=== PATIENT | male | born 1995 | race Caucasian/White ===

== ENCOUNTER 2020-08-31 06:50 | Outpatient (NON) | payer OTHER, SELFPAY ==
[2020-08-31 18:45] LABS: SARS-CoV-2 RNA PCR Negative
== END 2020-08-31 06:51 ==
PROVIDERS: PCP Nurse Practitioner Adult Health; Visit Provider Nurse Practitioner Adult Health
DX: R09.81 Nasal congestion (principal); Z20.828 Contact with and (suspected) exposure to other viral communicable diseases
CPT/HCPCS: 87635; C9803; U0003

== ENCOUNTER 2023-08-23 09:21 | Outpatient (CLI) | payer OTHER, SELFPAY ==
[2023-08-23 19:54] LABS: Alanine Aminotransferase 19 U/L (6-50); Albumin Level 4.3 g/dL (3.5-5.1); Alkaline Phosphatase 53 U/L (38-126); Anion Gap 6 mmol/L (8-16); Aspartate Amino Transferase 60 U/L (17-59); Bilirubin,Total 0.5 mg/dL (0.2-1.3); Blood Urea Nitrogen 13 mg/dL (9-20); Calcium 9.4 mg/dL (8.4-10.2); Carbon Dioxide 27 mmol/L (22-30); Chloride 106 mmol/L (98-107); Cholesterol 124 mg/dL (0-200); Estimated Glomerular Filt Rate > 60; Glucose 94 mg/dL (65-110); HDL Direct 40 mg/dL; Potassium 4.4 mmol/L (3.4-5.0); Sodium 139 mmol/L (137-145); Triglycerides 101 mg/dL (<150)
[2023-08-23 20:02] LABS: Hematocrit 45.1 % (42.0-52.0); Hemoglobin 15.2 g/dL (14.0-18.0); Mean Corpuscular HGB Conc 33.7 g/dl (32-36); Mean Corpuscular Hemoglobin 30.1 pg (26-34); Mean Corpuscular Volume 89.3 fl (80-100); Mean Platelet Volume 9.7 fl (7.4-10.4); Platelet Count Result 349 k/mm3 (150-375); Red Blood Count 5.05 M/mm3 (4.6-6.20); Red Cell Distribution Width 12.5 % (11.5-14.5); White Blood Count 7.5 K/mm3 (4.5-10.0)
[2023-08-23 20:05] LABS: LDL Cholesterol Direct 57 mg/dL
[2023-08-31 09:22] LABS: Testosterone Free 87.5 pg/mL (35.0-155.0); Testosterone Total 506 ng/dL (250-1100)
== END 2023-08-23 09:22 | disposition home or self-care (01) ==
LOC: ANHBWCLAB 09:23
PROVIDERS: PCP Nurse Practitioner Adult Health; Visit Provider Nurse Practitioner Adult Health
DX: Z13.9 Encounter for screening, unspecified (principal); F32.A Depression, unspecified; L05.91 Pilonidal cyst without abscess
CPT/HCPCS: 36415; 80053; 80061; 84402; 84403; 84443; 85027

== ENCOUNTER 2023-09-24 02:49 | Day surgery (SDC) | payer OTHER, SELFPAY ==
[2023-09-19 13:31] VITALS: BMI 27.6
--- NOTE | 2023-09-19 13:43 | PC.NURSE ---
Report to the Outpatient Waiting Room, entrance under the green pavilion located off [facility], at time _06:00AM on date _09/24/23 . Planned Procedure Time: _07:30AM__. Time changes happen often and if your time is changed the preop area will call you the afternoon before. - You and your visitor will be asked to self-screen and do not enter if you have any COVID symptoms. - A mask is optional within the hospital at this time. Patients may have clear liquids (water, carbonated beverages, clear teas, apple juice) until 3 hours prior to surgery with a maximum of 20 ounces. - No food from midnight until time of surgery Take the following medications with a SIP of water the morning of surgery: ___LEXAPRO DO NOT STOP ANY OF YOUR OTHER PRESCRIPTION MEDICATIONS PRIOR TO SURGERY ?EXCEPT THE FOLLOWING Medications to discontinue per physician NONE Date to take last dose____NA Please no make-up, nail urdu, hairspray, perfume, deodorant, or body powder the day of surgery. No jewelry (including any body piercings) or valuables the day of surgery, leave them at home. Please take a shower or bath the night before, or the morning of, surgery with an antibacterial soap. Wear comfortable, loose fitting clothing. - Jewelry must be removed prior to entering the operating room. Rings and piercings that are not removed may be cut off. - The hospital will not accept responsibility for valuables. - Please leave all valuables, including medications, at home the day of surgery. If you are going home after surgery, a licensed special client bus driver must drive you home. - NO public transportation without another adult if you receive anesthesia. - We recommend that an adult stay with you for 24 hours following discharge. - We also recommend that you do not drive, make important decision, drink alcoholic beverages, or take any drugs that were not prescribed by your health care provider for at least 24 hours after your discharge time. Follow any additional instructions given to you from your surgeon. If you or anyone in your household have experienced Covid symptoms in the past week, please notify your surgeon or the nurse liaison at the phone number below for possible testing. Telephone instructions given to __NICK and asked if any additional questions and then verbalized understanding. Patient advised to call surgeon office or pre surgery nurse liaison [phone] if any additional questions.
[2023-09-24] VITALS (8 sets, daily range): BP systolic 104–140; BP diastolic 59–92; PULSE 61–86; RESP 12–18; TEMP 36.3–36.9; O2SAT 98–100
[2023-09-24] MEDS: LACTATED RINGERS 1,000 ML 30 ML IV CONT (06:15)
--- NOTE | 2023-09-24 07:04 | WPDANESEPPF ---
Anes - Initial Pre Proc Eval Procedure: Operation Date: 09/24/23 07:30 Proposed Procedures p Excisional Biopsy of Pilonidal Cyst - Carisa Pitts MD Date/Time: 09/24/23 07:04 Surgeon: Carisa Pitts MD Pre Op Diagnosis: infected pilonidal cyst Patient Data Age: 28 Gender: M Height: 1.8 m Weight: 90 kg Allergies Allergy/AdvReac Type Severity Reaction Status Date / Time No Known Allergies Allergy Verified 09/12/23 10:33 Home Medications Medication Instructions Recorded Confirmed Type amoxicillin 875 mg-potassium 1 tablet PO BID 08/23/23 09/19/23 History clavulanate 125 mg tablet escitalopram oxalate 10 mg tablet 10 mg PO DAILY #30 tabs 08/23/23 09/19/23 Rx (Lexapro) Patient hx anesthesia problems: none Family hx anesthesia problems: none Results Review: All pre-operative results and documents have been reviewed as part of the pre-operative evaluation. COUNTS INCLUDE 234 BEDS AT THE [facility] Past Medical History Medical History Anxiety GERD (gastroesophageal reflux disease) IBS (irritable bowel syndrome) Family History Family History Sibling Depression Grandparent No problems noted. Grandparent Heart disease Cancer Social History Social History Years smoked: 2 Smoking status: Former smoker Tobacco type: e-cigarettes/vaping Smoking end date: 08/03/23 Alcohol intake: current Alcohol use details: Beer 4-5 maybe a month Substance use: current Substance use type: marijuana Last use: 09/18/23 Lack of Transportation: No Current Housing: I Have Housing Concerned About Future Housing: No Difficulty Paying Gas/Electric Bills: No Difficulty Paying for Meds: No Currently Unemployed: No Education: High School Diploma/GED Difficulty w/ Childcare or Family Care: No Living arrangements: alone Occupation/Education: occupation 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 Informed Consent: The patient's anesthetic plan and its attendant risks and benefits were discussed with the patient/family/POA. Questions were solicited and answers provided to the satisfaction of the patient/family/POA.
--- NOTE | 2023-09-24 07:23 | WPDHPUPDATE1 ---
History and Physical Update Update Date/Time: 09/24/23 07:23 History and Physical has been reviewed, including an updated exam of the patient. There are NO changes in the patient's condition. Risks, benefits, and alternatives have been discussed and questions answered. Patient agrees to proceed with procedure.
[2023-09-24] MEDS: ceFAZolin 2 GM/D5W 50 ML 2 GM/50 ML BAG IVPB (07:30)
[2023-09-24] MEDS: BUPIVACAINE/EPINEPHRINE 0.5% 30 ML VIAL INFILTRATE (07:56)
--- NOTE | 2023-09-24 08:24 | W.PM.PROC2 ---
Procedure Note - Detailed Date of Procedure 09/24/23 Pre-op Diagnosis infected pilonidal cyst Post-op Diagnosis Same Procedure Performed Complicated excision and drainage of infected pilonidal cyst measuring 4 x 2 cm Surgeon Carisa Pitts MD Anesthesia General and Local Indications 28-year-old male presenting with chronically infected pilonidal cyst Findings chronically infected pilonidal cyst cavity measuring 4 x 2 cm with active infection and liquified necrosis in the subcutaneous space, tracking inferiorly approximately 10 cm to multiple draining sinus tracts Description of Procedure The patient was taken to the operating room and placed in the prone position. After adequate induction of general anesthesia, the patient was prepped and draped in the normal sterile fashion. A time-out was then done to verify the patient's identity, as well as the procedure being performed. I then proceeded to localize the area and around the chronically infected abscess cavity. Of note, inferior to this area there was a row of pilonidal sinus tracts. This area was approximately 5 cm away from the actively infected pilonidal cyst. Then made an elliptical incision encompassing the overlying dermis of this chronically infected pilonidal cyst. Once through the dermis, there was noted to be an actively infected cyst cavity with purulent drainage and liquified necrosis in the subcutaneous tissue. This was carried down to the level of the presacral fascia. This did not involve the underlying fascia or muscle. I was able to note a tract inferiorly that tunneled at least 10 cm to the area of the other sinus tracts. Given the extensive space and active infection, the decision was made to just drain this large cavity and pack the wound open. This was done by irrigating the entire cavity tracked and making sure it was completely drained. Once achieved, I packed the entire tract with half-inch packing. The opening was noted to be 4 x 2 cm. Sterile dressing was then placed. The patient tolerated the procedure well and was extubated postoperatively. He will be transferred to the recovery in stable condition. Estimated Blood Loss 5 Drains No Packing Yes Pathology Yes Complications No immediate complications Condition Stable Disposition PACU [facility] Billing Surgery - Charge Forward: Surgery Billing
== END 2023-09-24 09:50 | disposition home or self-care (01) ==
PROVIDERS: PCP Nurse Practitioner Adult Health; Visit Provider Surgery
PROC: (CPT 11772; principal; 2023-09-24 07:30)
DX: L05.01 Pilonidal cyst with abscess (principal); F41.9 Anxiety disorder, unspecified; K21.9 Gastro-esophageal reflux disease without esophagitis; K58.9 Irritable bowel syndrome, unspecified; F12.90 Cannabis use, unspecified, uncomplicated; F17.290 Nicotine dependence, other tobacco product, uncomplicated; Z82.49 Family history of ischemic heart disease and other diseases of the circulatory system; Z80.9 Family history of malignant neoplasm, unspecified
CPT/HCPCS: 11772; 88305; J0330; J0690; J1100; J2250; J2405; J2704; J3010; J7120

== ENCOUNTER 2024-03-12 01:57 | Day surgery (SDC) | payer OTHER, SELFPAY ==
[2024-03-10 14:54] VITALS: BMI 25.4
--- NOTE | 2024-03-10 15:00 | PC.NURSE ---
Report to the Outpatient Waiting Room, entrance under the green pavilion located off [facility], at time _1100_ on date 03/12/24_. Planned Procedure Time: _1300__. Time changes happen often and if your time is changed the preop area will call you the afternoon before. - You and your visitor will be asked to self-screen and do not enter if you have any COVID symptoms. - A mask is optional within the hospital at this time. Patients may have clear liquids (water, carbonated beverages, clear teas, apple juice) until 3 hours prior to surgery with a maximum of 20 ounces. - No food from midnight until time of surgery - Infants may have breast milk until 4 hours before surgery, infant formula 6 hours prior to surgery. - Children will be allowed to drink immediately following surgery. If applicable, please bring a bottle or sippy cup to assist with drinking. Juice, water, soda, and popsicles are readily available. For infants on formula, please bring formula the day of surgery. Pacifiers are allowed. Take the following medications with a SIP of water the morning of surgery: LEXPRO DO NOT STOP ANY OF YOUR OTHER PRESCRIPTION MEDICATIONS PRIOR TO SURGERY ?EXCEPT THE FOLLOWING Medications to discontinue per physician NONE Date to take last dose Please no make-up, nail bahraini, hairspray, perfume, deodorant, or body powder the day of surgery. No jewelry (including any body piercings) or valuables the day of surgery, leave them at home. Please take a shower or bath the night before, or the morning of, surgery with HIBICLENS antibacterial soap. Wear comfortable, loose fitting clothing. Children are encouraged to wear pajamas. - Jewelry must be removed prior to entering the operating room. Rings and piercings that are not removed may be cut off. - The hospital will not accept responsibility for valuables. - Please leave all valuables, including medications, at home the day of surgery. If you are going home after surgery, a licensed clark driver must drive you home. - NO public transportation without another adult if you receive anesthesia. - We recommend that an adult stay with you for 24 hours following discharge. - We also recommend that you do not drive, make important decision, drink alcoholic beverages, or take any drugs that were not prescribed by your health care provider for at least 24 hours after your discharge time. For Pediatric surgeries, we recommend two adults accompany the child home. Follow any additional instructions given to you from your surgeon. If you or anyone in your household have experienced Covid symptoms in the past week, please notify your surgeon or the nurse liaison at the phone number below for possible testing. Telephone instructions given to PATIENT _and asked if any additional questions and then verbalized understanding. Patient advised to call surgeon office or pre surgery nurse liaison [phone] if any additional questions.
[2024-03-12] VITALS (7 sets, daily range): BP systolic 95–127; BP diastolic 57–83; PULSE 54–74; RESP 10–20; TEMP 36.3–36.7; O2SAT 99–100
--- NOTE | 2024-03-12 10:57 | WPDHPUPDATE1 ---
History and Physical Update Update Date/Time: 03/12/24 10:57 History and Physical has been reviewed, including an updated exam of the patient. There are NO changes in the patient's condition. Risks, benefits, and alternatives have been discussed and questions answered. Patient agrees to proceed with procedure.
[2024-03-12] MEDS: LACTATED RINGERS 1,000 ML 30 ML IV CONT ×2 (11:45→13:34)
--- NOTE | 2024-03-12 11:54 | WPDANESEPPF ---
Anes - Initial Pre Proc Eval Procedure: Operation Date: 03/12/24 13:00 Proposed Procedures p Excision Biopsy of Chronic Abscess Cavity of Upper Gluteal Cleft - Carisa Pitts MD Date/Time: 03/12/24 11:54 Surgeon: Carisa Pitts MD Pre Op Diagnosis: chronic abscess Patient Data Age: 28 Gender: M Height: 1.83 m Weight: 85 kg Allergies Allergy/AdvReac Type Severity Reaction Status Date / Time No Known Allergies Allergy Verified 03/12/24 11:43 Home Medications Medication Instructions Recorded Confirmed Type escitalopram oxalate 20 mg tablet 20 mg PO DAILY #30 tabs 10/15/23 03/12/24 Rx (Lexapro) Patient hx anesthesia problems: none Family hx anesthesia problems: none Results Review: All pre-operative results and documents have been reviewed as part of the pre-operative evaluation. [facility] Past Medical History Medical History Anxiety GERD (gastroesophageal reflux disease) IBS (irritable bowel syndrome) Surgical History Surgical History History of excision of pilonidal cyst Complicated excision and drainage of infected pilonidal cyst measuring 4 x 2 cm 09/24/23 Dr. Pitts Family History Family History Sibling Depression Grandparent No problems noted. Grandparent Heart disease Cancer Social History Social History (Updated 03/12/24 @ 11:54 by Alex Parker MD) Years smoked: 2 Smoking status: Current every day smoker Tobacco type: e-cigarettes/vaping Smoking end date: 08/03/23 Alcohol intake: current Drinks per week: 1 Alcohol use details: Beer 4-5 maybe a month Substance use: current Substance use type: marijuana Other substance usage details: DAILY Last use: 09/18/23 Lack of Transportation: No Current Housing: I Have Housing Concerned About Future Housing: No Difficulty Paying Gas/Electric Bills: No Difficulty Paying for Meds: No Currently Unemployed: No Education: High School Diploma/GED Difficulty w/ Childcare or Family Care: No Living arrangements: with roommate(s) Occupation/Education: occupation 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 Informed Consent: The patient's anesthetic plan and its attendant risks and benefits were discussed with the patient/family/POA. Questions were solicited and answers provided to the satisfaction of the patient/family/POA.
[2024-03-12] MEDS: ceFAZolin 2 GM/D5W 50 ML 2 GM/50 ML BAG IVPB (12:55)
[2024-03-12] MEDS: BUPIVACAINE/EPINEPHRINE 0.5% 10 ML VIAL INFILTRATE (13:14)
--- NOTE | 2024-03-12 13:44 | W.PM.PROC2 ---
Procedure Note - Detailed Date of Procedure 03/12/24 Pre-op Diagnosis Recurrent pilonidal abscess Post-op Diagnosis Same Procedure Performed excision recurrent pilonidal abscess Surgeon Carisa Pitts MD Anesthesia General and Local Indications 28-year-old male presenting with recurrent pilonidal abscess. Patient started on antibiotics but noted with chronic tract and continued drainage Findings recurrent chronic pilonidal abscess Description of Procedure The patient was taken to the operating room and placed in the prone position. After adequate induction of general anesthesia, the patient was prepped and draped in the normal sterile fashion. A time-out was then done to verify the patient's identity, as well as the procedure being performed. I began by localizing the area in and around this chronic, recurrent pilonidal abscess cavity. I then made an elliptical incision to include the overlying dermis and opening of this pilonidal abscess. This was taken down through the dermis into the subcutaneous tissue. I was able to identify a tract leading to a abscess cavity. Using the Bovie cautery was able to excise the entirety the tract and cavity. There was noted to be some ingrown hair in the cavity. Once the area was excised was sent to pathology for further review. This was taken down posteriorly to the of fascia, but did not involve or underlying muscle. I then copiously irrigated the cavity and no other pathology was seen. Hemostasis was gained with the Bovie cautery. Given that there was no further active infection, the decision was made to close the incision. The subcutaneous tissue was closed 2-0 Vicryl suture. The dermis was closed 3-0 nylon suture in a mattress fashion. The patient tolerated the procedure well and was extubated postoperatively. He will be transferred to the recovery room stable condition. Estimated Blood Loss 10 Drains No Packing No Pathology Yes Complications No immediate complications Condition Stable Disposition PACU [facility] Billing Surgery - Charge Forward: Surgery Billing
[2024-03-12] MEDS: oxyCODONE HCL (*CRX) 5 MG TAB IR PO (14:24)
== END 2024-03-12 14:55 | disposition home or self-care (01) ==
PROVIDERS: PCP Nurse Practitioner Adult Health; Visit Provider Surgery
PROC: (CPT 11772; principal; 2024-03-12 13:00)
DX: L05.01 Pilonidal cyst with abscess (principal); F41.9 Anxiety disorder, unspecified; F17.290 Nicotine dependence, other tobacco product, uncomplicated; F12.90 Cannabis use, unspecified, uncomplicated
CPT/HCPCS: 11772; 88305; A9270; J0330; J0690; J1100; J2250; J2405; J2704; J3010; J7120

== ENCOUNTER 2025-03-03 02:42 | Day surgery (SDC) | payer OTHER, SELFPAY ==
[2025-02-27 10:41] VITALS: BMI 25.8
--- NOTE | 2025-02-27 10:48 | PC.NURSE ---
Report to the Outpatient Waiting Room, entrance under the green pavilion located off [facility], at time _0830_ on date _[id number]_. Planned Procedure Time: _1030_.? Time changes happen often and if your time is changed the preop area will call you the afternoon before. - You and your visitor will be asked to self-screen and do not enter if you have any COVID symptoms. Please call surgeon if you need to reschedule. - A mask is optional within the hospital at this time. Patients may have clear liquids (water, carbonated beverages, clear teas, apple juice) until 3 hours prior to surgery with a maximum of 20 ounces. - No food from midnight until time of surgery and no smoking, or chewing tobacco (or any form of nicotine). No chewing gum, candy or mints. Take only the following medications with a SIP of water on the morning of surgery: ___Augmentin if still taking.___ DO NOT STOP ANY OF YOUR OTHER PRESCRIPTION MEDICATIONS PRIOR TO SURGERY EXCEPT THE FOLLOWING Hold all vitamins and supplements for 3 days per anesthesiologist. Medications to discontinue per physician Date to take last dose____ Please no make-up, nail montenegrin, hairspray, perfume, deodorant, or body powder the day of surgery.? No jewelry (including any body piercings) or valuables the day of surgery, leave them at home.? Please take a shower or bath the night before, or the morning of, surgery with an antibacterial soap.? Wear comfortable, loose fitting clothing.? - Jewelry must be removed prior to entering the operating room.? Rings and piercings that are not removed may be cut off. - The hospital will not accept responsibility for valuables.? - Please leave all valuables, including medications, at home the day of surgery. If you are going home after surgery, a licensed parcel post truck driver must drive you home.? - NO public transportation without another adult if you receive anesthesia. - We recommend that an adult stay with you for 24 hours following discharge. - We also recommend that you do not drive, make important decision, drink alcoholic beverages, or take any drugs that were not prescribed by your health care provider for at least 24 hours after your discharge time. Follow any additional instructions given to you from your surgeon. Telephone instructions given to __Nick__and asked if any additional questions and then verbalized understanding. Patient advised to call surgeon office or pre surgery nurse liaison [phone] if any additional questions.
[2025-03-03] VITALS (9 sets, daily range): BP systolic 106–134; BP diastolic 59–84; PULSE 61–83; RESP 11–18; TEMP 36.1; O2SAT 98–100; BMI 25.1
--- OUTSIDE RECORDS SUMMARY | 2025-03-03 02:47 | XMS_ITS | Clinical Summary ---
Author Organization [facility] Address [address] [place] [address] Care Team Providers Care In Home Sales Consultant Name Role Phone Nehal Benoit MD Primary Care Provider + Source Comments [facility],non-owned Affiliates and Associated Physician Practices is amultiple site organization consisting of ambulatory clinics and hospital sitesin [place], [place], [place] and [place]. This disclosure is being madepursuant to the Care Everywhere program and may not contain all information available regarding this patient. 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 Gender Identity Not on file Sexual Orientation Not on file Plan of Treatment Health Maintenance Due Date Last Done Comments HIV SCREENING 2010 HEPATITIS C SCREENING 07/14/2013 DTAP/TDAP/TD VACCINES (1 - Tdap) 2014 HEPATITIS B VACCINE (1 of 3 - 19+ 3-dose series) 2014 COVID-19 VACCINE ( - 2023-2 5 season) 2024 DEPRESSION SCREENING 09/03/2024 INFLUENZA VACCINE (Season Ended) 2025 ZOSTER VACCINE (1 of 2) 2045 HIB VACCINE Aged Out No longer eligi ble based on patient's age to complete this topic HPV VACCINE Aged Out No longer eligi ble based on patient's age to complete this topic MENINGOCOCCAL (Group B) VACC INE SHARED DECISION-MAKING Aged Out No longer eligibl e based on patient's age to complete this topic MENINGOCOCCAL GROUPS A/C/Y/W VACCINE Aged Out No longer eligible b ased on patient's age to complete this topic PNEUMOCOCCAL VACCINE Aged Out No long er eligible based on patient's age to complete this topic Insurance [facility] Address: [address] [address] COMMERCIAL GENERIC SELF PAY NO INSURANCE Member Subscriber Plan / Payer (Ef fective for All Dates) Name:Adantrenton Marcia Sofia Member ID:Not on file Relation to Subscriber:Not on file Name:MARCIA ACKERMAN Subscriber ID:Not on file Address: [address] [place] [id number] Payer ID:Not on file Group ID:Not on file Type:Self Pay Address: [facility] * Guarantor: MARCIA ACKERMAN Account Type Relation to Patient Date of Phone Billing Address Personal/Family [address] [place] [address] [employer] SELF PAY NO INSURANCE Member Subscriber Plan / Payer (Ef fective for All Dates) Name:Marcia Ackerman Member ID:Not on file Relation to Subscriber:Not on file Name:MARCIA ACKERMAN Subscriber ID:Not on file Address: [address] [place], [place] [address] [id number] Payer ID:Not on file Group ID:Not on file Type:Self Pay Address: [place], [place] * Guarantor: MARCIA ACKERMAN Account Type Relation to Patient Date of Phone Billing Address Personal/Family [address] [place], [place] [address]R[place] [phone] [facility] SELF PAY NO INSURANCE Member Subscriber Plan / Payer (Ef fective for All Dates) Name:Marcia Ackerman Member ID:Not on file Relation to Subscriber:Not on file Name:MARCIA ACKERMAN Subscriber ID:Not on file Address: [address] [place] [id number] Payer ID:Not on file Group ID:Not on file Type:Self Pay Address: [place], [place] * Guarantor: MKEAMARCIA Account Type Relation to Patient Date of Phone Billing Address Personal/[place] [address] [facility] SELF PAY NO INSURANCE Member Subscriber Plan / Payer (Ef fective for All Dates) Name:Marcia Ackerman Member ID:Not on file Relation to Subscriber:Not on file Name:MARCIA ACKERMAN Subscriber ID:Not on file Address: [place] [address] Payer ID:Not on file Group ID:Not on file Type:Self Pay Address: [place], [place] Care Teams In Home Sales Consultant Relationship Specialty Start Date End Date Nehal Benoit MD [address] [facility] [address] [place] [address] PCP - General Pediatrics 06/10/13
--- NOTE | 2025-03-03 08:09 | WPDHPUPDATE1 ---
History and Physical Update Update Date/Time: 03/03/25 08:09 History and Physical has been reviewed, including an updated exam of the patient. There are NO changes in the patient's condition. Risks, benefits, and alternatives have been discussed and questions answered. Patient agrees to proceed with procedure.
--- NOTE | 2025-03-03 09:20 | P.PNAN_ITS ---
Anes - Initial Pre Proc Eval Procedure: Operation Date: 03/03/25 10:30 Proposed Procedures p Excision of Recurrent Pilonidal Abscess - Carisa Pitts MD Date/Time: 03/03/25 09:20 Surgeon: Carisa Pitts MD Pre Op Diagnosis: Recurrent Pilonidal Abscess Patient Data Age: 29 Gender: M Height: 1.83 m Weight: 86.4 kg Allergies Allergy/AdvReac Type Severity Reaction Status Date / Time No Known Allergies Allergy Verified 02/27/25 10:40 Home Medications ?Medication ?Instructions ?Recorded ?Confirmed ?Type escitalopram oxalate 20 mg tablet See Rx Instructions .Route 11/20/24 02/27/25 Rx .COMPLEX #30 tabs amoxicillin 875 mg-potassium 1 tablet PO BID 10 days #20 tabs 02/24/25 02/27/25 Rx clavulanate 125 mg tablet Patient hx anesthesia problems: none Family hx anesthesia problems: none Results Review: All pre-operative results and documents have been reviewed as part of the pre- operative evaluation. [facility] Past Medical History Medical History IBS (irritable bowel syndrome) GERD (gastroesophageal reflux disease) Anxiety Surgical History Surgical History History of excision of pilonidal cyst Complicated excision and drainage of infected pilonidal cyst measuring 4 x 2 cm 09/24/23 Dr. Pitts Family History Family History Sibling Depression Grandparent No problems noted. Grandparent Heart disease Cancer Social History Social History Years smoked: 2 Smoking status: Current every day smoker Tobacco type: e-cigarettes/vaping Smoking end date: 08/03/23 Alcohol intake: current Drinks per week: 1 Alcohol use details: Beer 4-5 maybe a month Substance use: current Substance use type: marijuana Other substance usage details: DAILY Last use: 09/18/23 Do You Feel Safe in your Home?: Yes Lack of Transportation: No Lack of Food: Never True Current Housing: I Have Housing Concerned About Future Housing: No Difficulty Paying Gas/Electric Bills: No Difficulty Paying for Meds: No Currently Unemployed: No Education: High School Diploma/GED Difficulty w/ Childcare or Family Care: No Living arrangements: with roommate(s) Occupation/Education: occupation 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 Informed Consent: The patient's anesthetic plan and its attendant risks and benefits were discussed with the patient/family/POA. Questions were solicited and answers provided to the satisfaction of the patient/family/POA.
[2025-03-03] MEDS: LACTATED RINGERS 1,000 ML 30 ML IV CONT ×2 (09:41→11:00)
[2025-03-03] MEDS: ceFAZolin 2 GM/D5W 50 ML 2 GM/50 ML BAG IVPB (10:13)
[2025-03-03] MEDS: BUPIVACAINE/EPINEPHRINE 0.5% 30 ML VIAL INFILTRATE (10:35)
--- NOTE | 2025-03-03 10:37 | S_PTH ---
PATIENT: Nate Ackerman LOC: [facility] U#:[id number] AGE/SX: 29/M ROOM: RE03/03/[address]: Carisa Pitts MD : 1995 BED: DIS: 03/03/2025 SPEC #: [id number] RECD: 03/03/25 12:58 STATUS: DEIRDRE REQ #: [id number] PEMA: 03/03/25 10:[address]: Carisa Pitts DEPT: [facility] Surgical RECD BY: Scott Trinh ENTERED: 03/03/25 12:59 SP TYPE: Surgical OTHR DR: [employer] Tissues: A - Cyst Procedures: Hematoxylin and Eosin Stain Gross and Microscopic Level 4
--- NOTE | 2025-03-03 13:44 | W.PM.PROC2 ---
Procedure Note - Detailed Date of Procedure 03/03/25 Pre-op Diagnosis Chronic recurrent pilonidal abscess Post-op Diagnosis Same Procedure Performed excision of chronic, recurrent pilonidal abscess measuring 6 x 5 cm Surgeon Carisa Pitts MD Anesthesia General and Local Indications 29-year-old male with chronic, recurrent pilonidal abscess requiring multiple incision and drainages Findings 2 openings draining purulent material within 6 x 5 cm chronic abscess cavity Description of Procedure The patient was taken to the operating room and placed in the prone position. After adequate induction of general anesthesia, the patient was prepped and draped in the normal sterile fashion. A time-out was then done to verify the patient's identity, as well as the procedure being performed. The area around the chronic abscess was then locally anesthetized. I then used the probe to probe the 2 openings that were draining purulent material. These tracts were all noted to be within this cavity. I then made an elliptical incision to include both sinus tracts in the dermis around this cavity. This was carried down through the dermis into the subcutaneous tissue. There was noted to be chronic abscess cavity tracks within this cavity in the subcutaneous tissue. This area was widely excised down to the fascia. Once completely excised, this area measured 6 x 5 cm. I then copiously irrigated the cavity and no other pathology was noted. Hemostasis was gained with the Bovie cautery. I then packed the area with half-inch iodoform to keep the area open and draining. Sterile dressing was then placed. The patient tolerated the procedure well and was extubated postoperatively. He will be transferred to the recovery room in stable condition. Estimated Blood Loss 20 Drains No Packing Yes Pathology Yes Complications No immediate complications Condition Stable Disposition PACU [facility] Billing Surgery - Charge Forward: Surgery Billing
== END 2025-03-03 12:40 | disposition home or self-care (01) ==
PROVIDERS: Visit Provider Surgery
PROC: (CPT 11772; principal; 2025-03-03 10:30)
DX: L05.01 Pilonidal cyst with abscess (principal); F12.90 Cannabis use, unspecified, uncomplicated; F17.290 Nicotine dependence, other tobacco product, uncomplicated
CPT/HCPCS: 11772; 88305; J0690; J1100; J2003; J2250; J2405; J2704; J3010; J7120